=== PATIENT | female | born 1975 | race Caucasian/White ===

== ENCOUNTER → 2025-09-22 08:49 | Outpatient (REF) | payer OTHER, SELFPAY | LOC: WDC 08:49 | PROVIDERS: ATTENDING PHYSICIAN Obstetrics & Gynecology; FAMILY PHYSICIAN Family Medicine | DX: R92.8 Other abnormal and inconclusive findings on diagnostic imaging of breast (principal) | CPT/HCPCS: 77061; 77065 ==